=== PATIENT | female | born 2000 | race Caucasian/White ===

== ENCOUNTER 2020-11-15 17:29 | Emergency (ER) | payer SELFPAY ==
[2020-11-15 17:55] VITALS: BP 122/75; PULSE 107; TEMP 98.8; BMI 29.5
== END 2020-11-15 18:15 | disposition home or self-care (01) ==
LOC: JER 17:29
DX: J02.9 Acute pharyngitis, unspecified (principal)
CPT/HCPCS: 87880; 99283-25